=== PATIENT | female | born 1935 | race Caucasian/White ===

== ENCOUNTER 2021-01-08 08:44 | Inpatient (IN) ==
--- NOTE | 2020-12-11 16:53 | PAT Medication Instructions ---
Medication Instructions Date of Service December 11, 2020 Home Medications diphenhydramine HCl 25 mg capsule 25 mg PO DAILY PRN ibuprofen 200 mg tablet (Advil) 200 mg PO Q6H PRN ASK your surgeon for instructions ibuprofen 200 mg tablet (Advil) 200 mg PO Q6H PRN DO NOT take the morning of surgery diphenhydramine HCl 25 mg capsule 25 mg PO DAILY PRN Take evening before surgery diphenhydramine HCl 25 mg capsule 25 mg PO DAILY PRN Other Notes OTHERWISE NOTHING TO EAT OR DRINK AFTER MIDNIGHT. If you have any questions please call us at [phone] or [phone] or [phone] or [phone]
--- NOTE | 2020-12-12 10:34 | Anesthesiology Consultation ---
Date of Service December 12, 2020 Assessment & Plan (1) Encounter for pre-operative examination: - surgeon ordered medical clearance with PCP 12/25/2020. - Case discussed with Dr. Wilcox. Outpatient joint assessment: Patient is currently scheduled for inpatient pathway. If re-evaluated pending system levels during current pandemic, patient is NOT acceptable candidate for outpatient joint program from anesthesia standpoint (due to no support person at home). - COVID screening: Per assessment on 12/12/2020: Travel screen over [facility] to [place] for groceries-usual activity of daily living given home proximity to [facility], no known COVID-19 positive contacts or current COVID-19 related symptoms. Surgeon arranging preop COVID testing, scheduled 01/06/2021. Awaiting results. Chart Review Chart Review: Acceptable Risk for Surgery (pending medical clearance) and Patient seen in Pre Admission Testing Teaching & Discussion Pre-Anesthesia Teaching/Discussion Notes: Instructed NPO after midnight before surgery, except medications with 15 cc of water. Medication instructions provided according to the PAT guidelines. History Surgery Operation Date: 01/08/21 07:15 Proposed Procedures p Right Total Knee Arthroplasty - Chris Etienne DO Height/Weight Height: 5 ft 4 in Weight: 77.6 kg Allergies Allergy/AdvReac Type Severity Reaction Status Date / Time No Known Allergies Allergy Verified 12/11/20 11:21 Medications Home Medications Medication Instructions Recorded Confirmed Last Taken diphenhydramine HCl 25 mg capsule 25 mg PO DAILY PRN 12/11/20 12/11/20 Unknown ibuprofen 200 mg tablet (Advil) 200 mg PO Q6H PRN 12/11/20 12/11/20 Unknown Past Medical History Medical History (Updated 12/12/20 @ 11:23 by Talisha Martinez PA-C) Osteoarthritis 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 Exercise / Class Metabolic Activity II 4-5 Yardwork/Stairs/Walk up hill (no CP or SOB) Past Surgical History Surgical History (Updated 12/12/20 @ 10:43 by Talisha Martinez PA-C) History of arthroscopy of right knee for torn meniscus History of cataract surgery History of D&C mult History of joint replacement Rt great toe History of tonsillectomy History of tubal ligation Past Anesthesia History No Hx of Anesthesia Complications and No Family Hx of Anesthesia Complications History of PONV No Hx of PONV and No Hx of Motion Sickness Social History Smoking Status: Never smoker Do You Dip or Chew Tobacco: No Hx Alcohol Use: Yes Alcohol type: wine alcohol intake frequency: holidays/special occasions only Hx Substance Use: No substance use type: does not use Review of Systems She is told of snoring, denies witnessed apneas or sleep studies. She reports reflux, sleeps with 2 pillows. Patient denies chest pain, shortness of breath, dyspnea on exertion, fever, chills, cough, wheezing, or palpitations. Physical Exam Vital Signs Vitals BP 142/79 P 74 TEMP 97.5 SP02 99% on RA RESP 16 Physical Full cervical extension range of motion without pain TMD 3 finger breaths Mallampati Score 2 Dentition: intact, front bottom permanent bridge, denies loose or chipped teeth, denies caps or crowns Lungs: normal respiratory effort. Clear throughout to auscultation, no adventitious breath sounds Cardiac: regular rate and rhythm, no murmurs noted Carotid arteries: negative bruit bilat Extremities: trace pitting edema distal lower extremities bilat (chronic, unchanged per pt) Lab Results Anesthesia Preop Results Results Anesthesia Widget: WBC 6.23 K/uL (4.8-10.8) 12/12/20 Hgb 14.9 g/dL (12.0-16.0) 12/12/20 Hct 43.1 % (37-47) 12/12/20 Plt 357 K/uL (130-400) 12/12/20 Na 139 mmol/L (136-145) 12/12/20 K 4.3 mmol/L (3.5-5.1) 12/12/20 Cl 108 mmol/L (98-107) H 12/12/20 CO2 26 mmol/L (21-32) 12/12/20 BUN 22 mg/dl (7-18) H 12/12/20 Creat 0.78 mg/dl (0.6-1.2) 12/12/20 Glucose Level 91 mg/dl (70-99) 12/12/20 PT 9.9 Seconds (9.0-12.0) 12/12/20 PTT 26.2 Seconds (21.0-31.0) 12/12/20 INR 1.0 (0.9-1.1) 12/12/20 HA1c 5.6 % (4.5-5.6) 12/12/20 Urine Color Yellow 12/12/20 Urine Appearance Clear (Clear) 12/12/20 Urine pH 5.0 (4.5-7.5) 12/12/20 Urine Specific [place] 1.017 (1.000-1.030) 12/12/20 Urine Protein Negative (Negative) 12/12/20 Urine Glucose (UA) Negative (Negative) 12/12/20 Urine Ketones Negative (Negative) 12/12/20 Urine Blood Negative (Negative) 12/12/20 Urine Nitrite Negative (Negative) 12/12/20 Urine Bilirubin Negative (Negative) 12/12/20 Urine Urobilinogen Negative (Negative) 12/12/20 Urine Leukocyte Esterase 1+ (Negative) H 12/12/20 Urine WBC (Auto) 1-5 /hpf (0-5) 12/12/20 Urine RBC (Auto) 0-4 /hpf (0-4) 12/12/20 Urine Hyaline Casts (Auto) 1-5 /lpf (0-5) 12/12/20 Urine Epithelial Cells (Auto) >30 /lpf (0-5) H 12/12/20 Urine Bacteria (Auto) Negative (Negative) 12/12/20 Blood Type A Positive 12/12/20 Antibody Screen NEGATIVE 12/12/20 Testing Electrocardiogram Date: 12/12/20 Normal sinus rhythm, rate 70 bpm. Normal ECG. No previous ECGs available Confirmed by Jonel Anaya. Chest X-Ray Date: 12/12/20 IMPRESSION: No acute cardiopulmonary findings.
--- NOTE | 2021-01-02 12:26 | History & Physical Report ---
Date of Service January 02, 2021 date of surgery: 01/08/21 Procedure: Right Total Knee Arthroplasty Surgeon: Chris Etienne Assessment & Plan (1) Arthritis of right knee: Plan: Risks and benefits of procedure discussed in detail today, patient would like to proceed with a Right total knee replacement at [facility] as scheduled. will obtain medical clearance from Dr Caicedo prior to surgery as well as obtain PATs at [facility]. Will place on ASA 81mg po bid x 1 month post op, f/u 2 weeks post op for routine post-operative care and x-ray, sooner if having any problems. will make arrangements for HHPT at the time of discharge. At this point in time, has failed conservative measures and would like to proceed with surgical intervention. The risks and benefits have been discussed including, but not limited to, risk of infection, nerve injury, stiffness, loss of motion, failure to improve, etc. Reasonable outcomes and options of treatment were discussed. An explanation of appropriate alternatives to the procedure that may be advantageous were discussed and their risks and benefits, as well as the risks and benefits of not proceeding with treatment. I offered to answer any additional inquiries concerning the treatment involved. All the patient's questions were answered. The patient is agreeable, understanding of the treatment plan and alternatives, and wishes to proceed with the treatment plan. History of Present Illness Chief Complaint: Right knee pain Primary Care Provider: [facility] PCP Greta is a 85 year old female who complains of right knee pain, presents for pre-op evaluation prior to a right total knee replacement by Dr Etienne at [facility]. she complains of pain, decreased range of motion, and stiffness in the right knee. she states that the symptoms have been chronic and non-traumatic. Currently the patient states that the symptoms are moderate-severe and is described as aching, sharp and throbbing. Her symptoms are aggravated by ascending stairs, daily activities, first steps while awake walking. Prior NSAIDs include Aleve and IBU. she has also performed PT with a home exercise program. 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 Urinary incontinence Surgical History History of arthroscopy of right knee for torn meniscus History of cataract surgery History of D&C mult History of joint replacement Rt great toe History of tonsillectomy History of tubal ligation Social History Smoking Status: Never smoker Second Hand Exposure: Yes (as a child); Hx Alcohol Use: Yes Alcohol type: wine Hx Substance Use: No Preferred Language: Kenyan Communication Ability: Effective Validation Consultant Required: No Beliefs That Will Affect Care: None Current Living Situation: Alone Feels Safe at Home: Yes Assistive Devices: Glasses Review of Systems Review of Systems: All systems reviewed & are unremarkable except as noted in HPI & below Constitutional: no fever, no chills and no sweats Respiratory: no cough and no dyspnea Cardiovascular: no chest pain, no dyspnea and no orthopnea Gastrointestinal: no abdominal pain, no nausea and no vomiting Musculoskeletal: as per Subjective / HPI Physical Exam Physical Exam: HT: 5ft 4in WT: 77.6kg Constitutional: WD/WN, vitals as above no acute distress Respiratory: normal respiratory effort, lungs clear to auscultation no respiratory distress, no labored breathing and does not use accessory muscles Cardiovascular: RRR, no murmur, no edema Gastrointestinal (Abdomen): normal bowel sounds, soft, nontender, no hepatosplenomegaly Musculoskeletal: Knee: + knee abnormal to inspection (RIGHT KNEE), + effusion (+1 effusion), + limited ROM of knee (ROM 0/3/110), + knee ROM with crepitation, + joint line tenderness (medial joint line) and + Catie's sign positive; no deformity, no skin erythema, no ecchymosis, no valgus laxity, no varus laxity, anterior drawer test negative, Rex's sign negative and pivot shift test negative Results & Data Results & Data ([facility]) Diagnostic Findings Right Knee X-ray: Right knee series showing advanced degenerative changes to the right knee, tricompartmental narrowing of the joint spaces, findings showing joint space narrowing osteophyte formation and subchondral sclerosis noted. valgus alignment on flexion view. no acute bony pathology noted.
[~2021-01-08 08:44] MED LIST: ACETAMINOPHEN 500 MG TAB PO SCH; BUPIVACAINE 0.25% 30 ML VIAL ONE; BUPIVACAINE 0.5 % 5 MG/1 ML PF 10ML VIAL ONE; CeleBREX 200 MG CAP PO SCH; FAMOTIDINE 20 MG TAB PO SCH; GABAPENTIN 300 MG CAP PO SCH; LR 500ML BOLUS, THEN 15ML/HR IV SCH; METOCLOPRAMIDE HCL 10 MG TABLET PO SCH; ROPIVACAINE 0.5% HCL/PF 150 MG, BUPIVACAINE 0.75% MPF 20 ML, EPINEPHrine 30MG/30ML (OR ... INSTIL SCH; TRANEXAMIC ACID 1,000 MG **IV Intra-op IV SCH; TRANEXAMIC ACID 1,000 MG **IV Pre-op IV SCH; ceFAZolin 1000MG 1,000 MG/7.5 ML SYR IV SCH; dexAMETHasone 4 MG TAB PO SCH
--- NOTE | 2021-01-08 09:09 | History & Physical Bridge Note ---
Date of Service January 08, 2021 History & Physical Bridge Note I have examined the patient, reviewed the History & Physical and in the interval since the performance of the History & Physical I have noted the following changes of clinical significance: no changes noted
[2021-01-08] MEDS ORDERED: MIDAZOLAM HCL 1 MG/ML 2ML VIAL ONE (09:49)
[2021-01-08] MEDS ORDERED: fentaNYL citrate 100 MCG/2 ML VIAL ONE (09:49)
[2021-01-08] MEDS ORDERED: ONDANSETRON INJ 2 MG/ML 2 ML VIAL IV PRN ×2 (10:16→20:05)
[2021-01-08] MEDS ORDERED: ATROPINE SULFATE 0.1 MG/ML 10ML SYR IV PRN (10:16)
[2021-01-08] MEDS ORDERED: ePHEDrine sulfate 50 MG/ML AMP IV PRN (10:16)
[2021-01-08] MEDS ORDERED: ORTHO JOINT ANESTHETIC ONE (11:36)
--- NOTE | 2021-01-08 13:04 | Operative Report ---
Post Operative Report Pre & Post Diagnosis Operation Date: 01/08/21 10:35 Pre-Op Diagnosis: Unilateral Primary Osteoarthritis, Right Knee Post-Op Diagnosis: Unilateral Primary Osteoarthritis, Right Knee I identified the patient and participated in the time-out.: Yes Procedure Operation Date: 01/08/21 10:35 Actual Procedures p Right Total Knee Arthroplasty(Right) utilizing [employer] persona femur size 6 narrow tibia D polyfourteen medial constrained patella 28 oval Chris Etienne DO Surgeon Chris Etienne DO Operations And Maintenance Manager Levi MAYO Estimated Blood Loss 5 Findings Consistent with Post-Op Diagnosis Patient presents with severe end-stage DJD valgus alignment of 60 degrees right knee with [id number] eburnated [id number] sclerotic subchondral bone with marginal osteophytes valgus alignment moderate to large effusion Specimens Bone and cartilage Drains Medium bore Hemovac Anesthesia Type MAC Spinal Regional Complications none Disposition Accompanied Patient To Recovery: No Disposition: Recovery Room Indications Patient presents with severe end-stage DJD right knee no response to conservative management clinic physical therapy anti-inflammatories relative rest activity modification corticosteroid injections viscosupplementation the above intraoperative findings were noted Description of Procedure After proper prepping and draping of the Right lower extremity anterior midline incision was made over the region of the extensor extensor mechanism after meticulous hemostasis was obtained and maintained in subcutaneous tissues a medial parapatellar incision was made The patella was subluxed lateralward the medial lateral gutter were cleaned from any hypertrophic synovitis and scar tissue of the distal femoral block was placed and the distal femoral osteotomy cut was made subsequently the chamfers anterior and posterior osteotomy cuts were made utilizing the 4-in-1 block the tibia was subsequently subluxed anteriorward medial and ateral meniscal remnants were excised in their entirety remnants of the anterior and posterior cruciate ligaments were excised in their entirety excellent exposure of the proximal tibia was obtained the tibial osteotomy guide was placed on the proximal tibial osteotomy cut was made once again the knee was irrigated with copious amounts of sterile saline solution the patella was subsequently everted lateralward thickened scar tissue around the patella was removed the patella was subsequently cut utilizing a freehand te chnique and was drilled prepared for final preparation and placement of patella socially flexion-extension gaps were checked and the equal and symmetric trials were placed to the appropriate femoral and tibial trials with poly-spacer being placed for equal flexion and extension gaps and full range of motion including extension to 0 and flexion to 140 the trial components after having been taken to recovery range of motion was subsequently removed meticulous hemostasis was obtained and maintained subsequently a knee block injection of joint cocktail including ropivacaine 0.5% 150 mg. Bupivacaine 0.5% epinephrine 1-200,030 mL's toradol 30 mg dexamethasone 4 mg ketamine 10 mg clonidine 100 micrograms normal saline solution 30 mg was infiltrated into the soft tissues of the posterior knee medial lateral gutters and periosteal synovium special attention was paid to protect neurovascular structures at all times subsequently trial components having been removed the knee was irrigated with sterile saline solution. debris was removed the proximal tibia was subsequently prepared and was made ready for the placement of the tibial component tibial component was also cemented and tamped into position the femoral component was subsequently placed and cemented in the position the patellar component was subsequently cemented in position because hemostasis once again obtained and maintained wound having been thoroughly irrigated with debridement and debridement lavage was performed as well as a medial parapatellar incision closed with #1 Vicryl in interrupted fashion subcutaneous was closed with #2 Vicryl skin was closed with skin clips. PA-C was necessary for prepping and drapping as well as wound closure of deep fascia Sub cutaneous tissue and skin and was necessary for the case. A sterile compressive dressing was placed patient was taken to recovery in stable condition of report dictated by Lowell I attest to the content of the Intraoperative Record and any orders documented therein. Any exceptions are noted below. I attest to the content of the Intraoperative Record and any orders documented therein. Any exceptions are noted below.
[2021-01-08] MEDS ORDERED: PROPOFOL IV EMULSION 10 MG/ML 20 ML VIAL IV ONE (13:43)
--- NOTE | 2021-01-08 14:20 | XRay Report ---
RIGHT KNEE 2 VIEWS History: Right total knee arthroplasty. Degenerative arthritis. Postop. FINDINGS: The patient is status post a right total knee arthroplasty. The hardware is intact. No frac ture or dislocation. Surgical drains are in place. IMPRESSION: Right total knee arthroplasty. No evidence for hardware complication. ACT 112: Negative or not required by law. Electronically signed by: Wander Rordíguez M.D. 01/08/2021 2:19 PM
--- NOTE | 2021-01-08 14:24 | Anesthesiology Progress Note ---
Date of Service January 08, 2021 Anesthesia Post Procedure Vital Signs Vital Signs: Temp Pulse Pulse Resp BP Pulse Ox 01/08/21 13:46 36.7 C 80 15 109/55 L 99 01/08/21 09:21 36.6 C 78 18 140/74 99 Transfer of Care Handoff Completed per policy Notes Mental Status: alert / awake / arousable and participated in evaluation Patient Amnestic to Procedure: Yes Nausea / Vomiting: adequately controlled Pain: adequately controlled Airway Patency, RR, SpO2: stable & adequate BP & HR: stable & adequate Hydration State: stable & adequate Neuraxial Anesthesia: was administered and sensory block is resolving Anesthetic Complications: no major complications apparent and Pt Satisfied with anesthetic care
[2021-01-08] MEDS ORDERED: NALOXONE HCL 0.4 MG/1 ML VIAL/CARP IV PRN (20:05)
[2021-01-08] MEDS ORDERED: SODIUM CHLORIDE 0.9% 1000ML 1,000 ML IV SCH (20:05)
[2021-01-08] MEDS ORDERED: oxyCODONE HCL IR 5 MG TAB (IMMEDIATE RELEASE) PO PRN (20:05)
[2021-01-08] MEDS ORDERED: MAGNESIUM HYDROXIDE SUSP 30 ML UDC PO PRN (20:05)
[2021-01-08] MEDS ORDERED: HYDROmorphone INJ 0.5 MG/0.5 ML SYR IV PRN (20:05)
[2021-01-08] MEDS ORDERED: diphenhydrAMINE Capsule 25 MG CAP PO PRN (20:05)
[2021-01-08] MEDS ORDERED: bisacodyL 10 MG SUPP PR PRN (20:05)
[2021-01-08] MEDS ORDERED: SENNA 8.6 MG TAB PO SCH (21:00)
[2021-01-08] MEDS: ASPIRIN 81 MG ECTAB PO SCH (21:33)
[2021-01-08] MEDS: ACETAMINOPHEN 500 MG TAB PO SCH (21:34)
[2021-01-08] MEDS: DOCUSATE SODIUM 100 MG CAP PO SCH (21:36)
[2021-01-08] MEDS: ceFAZolin 2000MG 2,000 MG/15 ML SYR IV SCH (21:36)
[2021-01-09] MEDS: ceFAZolin 2000MG 2,000 MG/15 ML SYR IV SCH (06:01)
[2021-01-09] MEDS: ACETAMINOPHEN 500 MG TAB PO SCH ×2 (06:01→13:20)
[2021-01-09 06:22] LABS: Hematocrit (blood only) 38.5 % (37-47); Hemoglobin 12.9 g/dL (12.0-16.0); Mean Corpuscular Hgb Conc 33.5 g/dL (32-36); Mean Corpuscular Volume 92.5 fL (80-100); Mean Platelet Volume 9.3 fL (7.4-10.4); Platelet Count 306 K/uL (130-400); RDW Coefficient of Variation 14.3 % (11.5-14.5); RDW Standard Deviation 48.4 fL (36.4-46.3); Red Blood Count 4.16 M/uL (4.2-5.4); White Blood Count 14.48 K/uL (4.8-10.8)
[2021-01-09 07:02] LABS: BUN Creatinine Ratio 14.8 (10-20); Calcium 8.9 mg/dl (8.5-10.1); Creatinine Clr Calc Pharmacy 45.2 ml/min; Est GFR (African American) 64.2 ml/min; Est GFR (Non-African American) 55.4 ml/min; Potassium 4.1 mmol/L (3.5-5.1)
[2021-01-09] MEDS ORDERED: MULTIVITAMIN TAB PO SCH (09:00)
[2021-01-09] MEDS: ASPIRIN 81 MG ECTAB PO SCH (09:12)
[2021-01-09] MEDS: DOCUSATE SODIUM 100 MG CAP PO SCH (09:12)
--- NOTE | 2021-01-09 09:47 | Orthopedic Progress Note ---
Date of Service January 09, 2021 Assessment & Plan (1) Arthritis of right knee: Plan: POD 1 s/p Right TKA PT/OT protocols. WBAT. DVT prophylaxis - ASA BID, SCD's, CITLALLI's Pain management as written. Planning for outpt PT Plan for dc to home today if progressing well. Admission and Anticipated Discharge Date Admission Date: January 08, 2021 Subjective POD 1 Pt starting to go through her PT session this AM. No complaints. Feeling well. Pain controlled. Denies SOB, CP, LH. Physical Exam Physical Exam: Dressings C/D/I. Calves soft, NT. NV intact. Toes mobile. HV drainage 80ml from previous shift Results & Data ([facility]) Vital Signs (Past 12 Hours) Vital Signs Temp Pulse Resp BP Pulse Ox 01/09/21 06:15 36.7 C 67 16 109/57 L 95 Laboratory Results Laboratory Results WBC 14.48 K/uL (4.8-10.8) H 01/09/21 06:11 RBC 4.16 M/uL (4.2-5.4) L 01/09/21 06:11 Hgb 12.9 g/dL (12.0-16.0) 01/09/21 06:11 Hct 38.5 % (37-47) 01/09/21 06:11 MCV 92.5 fL (80-100) 01/09/21 06:11 MCH 31.0 pg (25-34) 01/09/21 06:11 MCHC 33.5 g/dL (32-36) 01/09/21 06:11 RDW Std Deviation 48.4 fL (36.4-46.3) H 01/09/21 06:11 RDW Coeff of Iker 14.3 % (11.5-14.5) 01/09/21 06:11 Plt Count 306 K/uL (130-400) 01/09/21 06:11 MPV 9.3 fL (7.4-10.4) 01/09/21 06:11 Sodium 139 mmol/L (136-145) 01/09/21 06:11 Potassium 4.1 mmol/L (3.5-5.1) 01/09/21 06:11 Chloride 110 mmol/L (98-107) H 01/09/21 06:11 Carbon Dioxide 25 mmol/L (21-32) 01/09/21 06:11 Anion Gap 4.0 (3-11) 01/09/21 06:11 BUN 14 mg/dl (7-18) 01/09/21 06:11 Creatinine 0.95 mg/dl (0.6-1.2) 01/09/21 06:11 Est Cr Clr Drug Dosing 45.2 ml/min 01/09/21 06:11 Est GFR ( Amer) 64.2 ml/min 01/09/21 06:11 Est GFR (Non-Af Amer) 55.4 ml/min 01/09/21 06:11 BUN/Creatinine Ratio 14.8 (10-20) 01/09/21 06:11 Glucose 113 mg/dl (70-99) H 01/09/21 06:11 Calcium 8.9 mg/dl (8.5-10.1) 01/09/21 06:11 COVID-19 Eval Order Covid19 IDNow [facility] 01/08/21 09:12 SARS-CoV-2, RNA, NAAT NEGATIVE (NEGATIVE) 01/08/21 09:12 Impressions Knee X-Ray 01/08/21 13:58 RIGHT KNEE 2 VIEWS History: Right total knee arthroplasty. Degenerative arthritis. Postop. FINDINGS: The patient is status post a right total knee arthroplasty. The hardware is intact. No fracture or dislocation. Surgical drains are in place. IMPRESSION: Right total knee arthroplasty. No evidence for hardware complication. ACT 112: Negative or not required by law. Electronically signed by: Wander Rodríguez M.D. 01/08/2021 2:19 PM
--- NOTE | 2021-01-10 11:18 | Discharge Summary ---
Date of Service January 10, 2021 Admission HPI Per Admitting Provider Greta is a 85 year old female who complains of right knee pain, presents for pre-op evaluation prior to a right total knee replacement by Dr Etienne at [facility]. she complains of pain, decreased range of motion, and stiffness in the right knee. she states that the symptoms have been chronic and non-traumatic. Currently the patient states that the symptoms are moderate-severe and is described as aching, sharp and throbbing. Her symptoms are aggravated by ascending stairs, daily activities, first steps while awake walking. Prior NSAIDs include Aleve and IBU. she has also performed PT with a home exercise program. Admission Exam Per Admitting Provider Physical Exam: HT: 5ft 4in WT: 77.6kg B Constitutional: WD/WN, vitals as above no acute distress Respiratory: normal respiratory effort, lungs clear to auscultation no respiratory distress, no labored breathing and does not use accessory muscles Cardiovascular: RRR, no murmur, no edema Gastrointestinal (Abdomen): normal bowel sounds, soft, nontender, no hepatosplenomegaly Musculoskeletal: Knee: + knee abnormal to inspection (RIGHT KNEE), + effusion (+1 effusion), + limited ROM of knee (ROM 0/3/110), + knee ROM with crepitation, + joint line tenderness (medial joint line) and + Catie's sign positive; no deformity, no skin erythema, no ecchymosis, no valgus laxity, no varus laxity, anterior drawer test negative, Rex's sign negative and pivot shift test negative Principal Diagnosis Right Knee Osteoarthritis Discharge Data Allergies Allergy/AdvReac Type Severity Reaction Status Date / Time friedman Allergy Mild Green Friedman Verified 01/08/21 11:16 - Congested Sulfa (Sulfonamide Allergy Unknown Unknown Verified 01/08/21 11:16 Antibiotics) Procedures Performed Operation Date: 01/08/21 10:35 Actual Procedures p Right Total Knee Arthroplasty(Right) - Chris Etienne DO Ordered Studies 01/08/21 05:00 US - OR guided needle placemen Routine Hospital Course (1) Arthritis of right knee: Date of Service January 09, 2021 Assessment & Plan (1) Arthritis of right knee: Plan: POD 1 s/p Right TKA PT/OT protocols. WBAT. DVT prophylaxis - ASA BID, SCD's, CITLALLI's Pain management as written. Planning for outpt PT Plan for dc to home today if progressing well. Admission and Anticipated Discharge Date Admission Date: January 08, 2021 Subjective POD 1 Pt starting to go through her PT session this AM. No complaints. Feeling well. Pain controlled. Denies SOB, CP, LH. Physical Exam Physical Exam: Dressings C/D/I. Calves soft, NT. NV intact. Toes mobile. HV drainage 80ml from previous shift Results & Data ([facility]) Vital Signs (Past 12 Hours) Vital Signs Temp Pulse Resp BP Pulse Ox 01/09/21 06:15 36.7 C 67 16 109/57 L 95 Laboratory Results Laboratory Results WBC 14.48 K/uL (4.8-10.8) H 01/09/21 06:11 RBC 4.16 M/uL (4.2-5.4) L 01/09/21 06:11 Hgb 12.9 g/dL (12.0-16.0) 01/09/21 06:11 Hct 38.5 % (37-47) 01/09/21 06:11 MCV 92.5 fL (80-100) 01/09/21 06:11 MCH 31.0 pg (25-34) 01/09/21 06:11 MCHC 33.5 g/dL (32-36) 01/09/21 06:11 RDW Std Deviation 48.4 fL (36.4-46.3) H 01/09/21 06:11 RDW Coeff of Iker 14.3 % (11.5-14.5) 01/09/21 06:11 Plt Count 306 K/uL (130-400) 01/09/21 06:11 MPV 9.3 fL (7.4-10.4) 01/09/21 06:11 Sodium 139 mmol/L (136-145) 01/09/21 06:11 Potassium 4.1 mmol/L (3.5-5.1) 01/09/21 06:11 Chloride 110 mmol/L (98-107) H 01/09/21 06:11 Carbon Dioxide 25 mmol/L (21-32) 01/09/21 06:11 Anion Gap 4.0 (3-11) 01/09/21 06:11 BUN 14 mg/dl (7-18) 01/09/21 06:11 Creatinine 0.95 mg/dl (0.6-1.2) 01/09/21 06:11 Est Cr Clr Drug Dosing 45.2 ml/min 01/09/21 06:11 Est GFR ( Amer) 64.2 ml/min 01/09/21 06:11 Est GFR (Non-Af Amer) 55.4 ml/min 01/09/21 06:11 BUN/Creatinine Ratio 14.8 (10-20) 01/09/21 06:11 Glucose 113 mg/dl (70-99) H 01/09/21 06:11 Calcium 8.9 mg/dl (8.5-10.1) 01/09/21 06:11 COVID-19 Eval Order Covid19 [facility]Now [facility] 01/08/21 09:12 SARS-CoV-2, RNA, NAAT NEGATIVE (NEGATIVE) 01/08/21 09:12 Impressions Knee X-Ray 01/08/21 13:58 RIGHT KNEE 2 VIEWS History: Right total knee arthroplasty. Degenerative arthritis. Postop. FINDINGS: The patient is status post a right total knee arthroplasty. The hardware is intact. No fracture or dislocation. Surgical drains are in place. IMPRESSION: Right total knee arthroplasty. No evidence for hardware complication. Total Time Total Time Spent Total Time Spent (In Minutes): 5 Discharge Plan Discharge Items Patient Disposition: Home - Self-Care Reason For Visit: Unilteral Primary Osteoarthritis, Right Knee Discharge Diagnosis: Osteoarthritis Right Knee Activity: Per Instructions section Weightbearing: Right weightbearing Weightbearing Comment: as tolerated with walker Non-emergency contact: Surgeon Call non-emergency contact if: you have any medication questions, your pain is not controlled, your temperature is above 101.5, your wound has increased redness and your wound has increased drainage Follow-up/Referrals: PCP,NO [Physician] - Diet: Regular Addtl Attending Provider Instructions: ACTIVITY RECOMMENDATIONS: SELF CARE INSTRUCTIONS AFTER TOTAL KNEE REPLACEMENT A. You may need to continue a physical therapy program after discharge from the hospital. There are several options available to you. Your doctor will assist you in selecting the best one for you. 1. An out-patient facility 2 to 3 times a week for therapy or home therapy. 2. Continue working on all exercises taught to you in the hospital. Your goals should be to increase bending of your knee to 90 degrees and beyond and to fully straighten your knee. B. You may progress at your own pace from walking with a walker or crutches to a cane; then to no assistive devices. C. Make walking a part of your daily routine. Be up as much as comfortable with rest periods throughout the day. Rest with leg elevation is very important. Use the ice wrap frequently for the first 3-4 weeks. D. There are no restrictions on activities. You may ride in a car, shop, participate in screen examiner and all social activities. E. Wear the long elastic stockings (CITLALLI hose) 20 hours a day for 2 weeks after surgery. They can be removed several times a day for laundering and for a bath. F. You may shower, no tub baths until cleared by your doctor. SPECIAL CARE INSTRUCTIONS: VERY IMPORTANT TO READ AND REVIEW A. There are a few signs you need to watch for after you are home. Call [facility] if you notice any of the followin. Increased severe knee pain. Some pain is expected especially when you exercise. 2. Increased swelling in your leg or knee; pain or swelling of the calf muscle in either lower leg. 3. Any fluid drainage from the incision. 4. Shortness of breath or chest pain. B. Please call [facility] at if you have any concerns or questions about your operation or recovery. The doctor or his nurse will return your call promptly. C. You must take antibiotics before dental work, bladder, bowel or other surgery. Your doctor will provide you with a permanent care to carry describing this precaution. IMPORTANT: * REMEMBER TO TAKE ASPIRIN, 81 MG, TWICE DAILY FOR 4 WEEKS UNLESS OTHERWISE DIRECTED. THIS IS YOUR BLOOD THINNER. * HIGH RISK PATIENTS MAY BE PRESCRIBED A STRONGER BLOOD THINNER. THIS WILL BE PROVIDED AT DISCHARGE. * CALL IF INCREASED PAIN, REDNESS, DRAINAGE OR FEVER GREATER THAT 101. * WEAR CITLALLI HOSE 20 HOURS PER DAY FOR 2 WEEKS. * DERMABOND Prineo- This is a mesh tape dressing that is covered with glue. It should remain in place until the incision is properly healed, usually 10-14 days. This dressing is designed to naturally slough off. You may trim the excess mesh tape as it peels off. Incision may be briefly wet in a shower. Dry immediately by blotting with a clean, dry towel. Do not bath or swim until instructed by your doctor. Do not scratch, rub, or pick at the dressing. Do not apply any topical ointments or lotions until dressing is completely removed and/or instructed by your doctor. There may be a small piece of suture material at one end of your incision. Do not pull or trim this. If it is bothersome or catching on clothing, you may cover it with a band-aid. . FOLLOW UP VISIT: If appointment is not already scheduled: Please call [facility] to make a follow-up appointment for 2 weeks after your surgery at . Stand-Alone Forms: My [facility] [employer], Smoking Cessation Medications and DC Order Prescriptions: New aspirin 81 mg Tablet,Delayed Release (Dr/Ec) 81 mg PO BID 30 Days Qty: 60 RF: 0 acetaminophen [Tylenol Extra Strength] 500 mg Tablet 1,000 mg PO Q8 14 Days Qty: 84 RF: 0 polyethylene glycol 3350 [Miralax] 17 gram powder in packet 17 g PO DAILY PRN (Reason: constipation) Qty: 5 RF: 0 cefadroxil 500 mg capsule 500 mg PO BID Qty: 28 RF: 1 oxycodone 5 mg Tablet 5 mg PO Q4H MDD 6 PRN (Reason: pain) Qty: 30 RF: 0 Continued diphenhydramine HCl 25 mg Capsule 25 mg PO DAILY PRN (Reason: Allergy Symptoms) RF: 0 Discontinued ibuprofen [Advil] 200 mg Tablet 200 mg PO Q6H PRN (Reason: Pain) RF: 0 Discharge Orders: Discharge Order (Routine); Ordered 01/09/21 Ordered By: Levi Patel Admission Data Admit Date/Time: 01/08/21 13:58 Attending Provider: Chris Etienne Admit Provider: Chris Etienne Primary Care Provider: John Caicedo Other Interventions: Discharge Summary Assessment (RN) Last Done: 01/09/21 12:00
== END 2021-01-09 13:39 | disposition home or self-care (01) | DRG 470 ==
LOC: ASU 08:44 → PACUINP 13:58
DX: M17.11 Unilateral primary osteoarthritis, right knee